=== PATIENT | female | born 1950 | race Caucasian/White ===

== ENCOUNTER 2017-06-03 10:26 | Emergency (ER) | payer OTHER ==
[2017-06-03 10:30] VITALS: BP 137/79; PULSE 80; TEMP 97.8; BMI 28.3
[2017-06-03] MEDS ORDERED: diazePAM 5 MG TABLET PO ONE (11:06)
[2017-06-03] MEDS ORDERED: predniSONE 20 MG TABLET (UD) PO ONE (11:06)
[2017-06-03] MEDS ORDERED: KETOROLAC TROMETHAMINE 60 MG/2 ML VIAL IM ONE (11:06)
--- NOTE | 2017-06-03 11:11 | PDOC ---
History of Present Illness - General Chief Complaint: Back Pain Stated Complaint: BACK PAIN Time Seen by Provider: 06/03/17 10:43 History Source: Patient Exam Limitations: No Limitations - History of Present Illness Initial Comments: 06/03/17 11:06 Occurred: reports: just prior to arrival Severity: reports: mild Pain Location: reports: back, neck Modifying Factors: improves with: None Past History - Travel Traveled outside of the country in the last 30 days: No Close contact w/someone who was outside of country & ill: No - Past Medical History Allergies/Adverse Reactions: Allergies Allergy/AdvReac Type Severity Reaction Status Date / Time No Known Allergies Allergy Verified 06/03/17 10:30 Home Medications: Ambulatory Orders Pantoprazole Sodium [Protonix] 40 mg PO DAILY #7 tablet. 05/06/16 Sucralfate [Carafate -] 1 gm PO QID #28 tablet 05/06/16 Cyclobenzaprine HCl [Flexeril 10 mg] 10 mg PO BID PRN #14 tablet 06/03/17 Prednisone [Deltasone -] 20 mg PO BID #8 tablet 06/03/17 Cancer: No (TAKING MEDS TO PREVENT CANCER?) HTN: Yes Other medical history: CERVICAL PROBLEM - Suicide/Smoking/Psychosocial Hx Smoking History: Never smoked Hx Alcohol Use: No Drug/Substance Use Hx: No Substance Use Type: None Review of Systems - Review of Systems Able to Perform ROS?: Yes Is the patient limited [place] proficient: Yes Constitutional: Yes: Symptoms Reported, See HPI, Malaise HEENTM: No: Symptoms Reported, See HPI Respiratory: Yes: Symptoms reported, See HPI Musculoskeletal: Yes: Symptoms Reported, See HPI, Back Pain, Muscle Pain, Neck Pain Integumentary: Yes: Symptoms Reported Neurological: Yes: Symptoms reported, See HPI, Headache, Weakness All Other Systems: Reviewed and Negative *Physical Exam - Vital Signs Last Vital Signs Temp Pulse Resp BP Pulse Ox 97.8 F 80 20 137/79 98 06/03/17 10:27 06/03/17 10:27 06/03/17 10:27 06/03/17 10:27 06/03/17 10:27 - Physical Exam General Appearance: Yes: Nourished, Appropriately Dressed, Apparent Distress, Moderate Distress HEENT: positive: MAGGIE, Normal ENT Inspection, TMs Normal, Pharynx Normal Neck: positive: Tender, Supple, Other (palpable spasm to the paravertebral spinous muscles extending from inferior sternocleidomastoid on the left side and through trapezius and lumbar paravertebral spinous musculature. Has no true bone tenderness to cervical thoracic or lumbar spine process, but movement is sensationally difficult with recurrent spasm. No numbness or tingling to feet, neurovascular intact) Respiratory/Chest: positive: Lungs Clear, Normal Breath Sounds Extremity: positive: Normal Capillary Refill Integumentary: positive: Normal Color, Dry, Warm Neurologic: positive: sustainability communicator II-XII NML intact, Fully Oriented, Alert, Normal Mood/ Affect, Normal Response, Motor Strength 5/5 Progress Note - Progress Note Progress Note: Severe back spasm, will treat with NSAIDs, cyclobenzaprine, and prednisone. *DC/Admit/Observation/Transfer Diagnosis at time of Disposition: Back muscle spasm - Discharge Dispostion Disposition: HOME Condition at time of disposition: Stable Admit: No - Patient Instructions Printed Discharge Instructions: DI for Back Spasm Additional Instructions: Rest, no heavy lifting or exercise until pain is resolved Hot soaks to neck and low back as often as possible/hot showers or Jacuzzis No massage or therapy until spasm is gone Continue ibuprofen 2-200 mg tablets every 6 hours for the next 3 days then as needed for pain and swelling Cyclobenzaprine 1-10mg every 8 hours as needed for spasm Prednisone 40 mg daily for next 5 days If not significant improvement within 24 hours with medication and rest regime, followup with private physician for change in medications and /or therapy. Call [phone]= Rosaline for updates for medications/ - Post Discharge Activity Forms/Work/School Notes: Back to Work
[2017-06-03] MEDS ORDERED: predniSONE 20 MG TABLET (UD) ONE (11:13)
[2017-06-03] MEDS ORDERED: KETOROLAC TROMETHAMINE 60 MG/2 ML VIAL ONE (11:13)
[2017-06-03] MEDS ORDERED: diazePAM 5 MG TABLET ONE (11:13)
== END 2017-06-03 11:48 | disposition home or self-care (01) ==
LOC: JERFT 10:26
PROC: 3E0233Z Introduction of Anti-inflammatory into Muscle, Percutaneous Approach (ICD-10-PCS; principal; 2017-06-03)
DX: M62.830 Muscle spasm of back (principal)
CPT/HCPCS: 96372; 99281-25

== ENCOUNTER 2022-12-25 18:21 | Emergency (ER) | payer OTHER ==
[2022-12-25 18:31] VITALS: BP 144/59; PULSE 63; RESP 18; TEMP 98.5; BMI 23.7
[2022-12-25] MEDS ORDERED: ACETAMINOPHEN 500 MG TABLET (FP) PO ONE (19:40)
[2022-12-25] MEDS ORDERED: ACETAMINOPHEN 500 MG TABLET (FP) ONE (19:44)
== END 2022-12-25 20:22 | disposition home or self-care (01) ==
LOC: JERFT 18:21
DX: M25.561 Pain in right knee (principal); W01.190A Fall on same level from slipping, tripping and stumbling with subsequent striking against furniture, initial encounter
CPT/HCPCS: 73562-TC-RT-FY; 99283-25

== ENCOUNTER 2023-04-13 12:00 | Emergency (ER) | payer OTHER ==
[2023-04-13 12:07] VITALS: BP 124/80; PULSE 61; RESP 18; TEMP 97.8; BMI 22.6
== END 2023-04-13 12:42 | disposition home or self-care (01) ==
LOC: JERFT 12:00
DX: Z48.02 Encounter for removal of sutures (principal)
CPT/HCPCS: 99281-25

== ENCOUNTER 2023-05-13 21:14 | Emergency (ER) | payer OTHER ==
[2023-05-13 21:43] VITALS: BP 140/70; PULSE 69; RESP 19; TEMP 98.4; BMI 22.8
[2023-05-13] MEDS ORDERED: DIPHTH,PERTUSS(ACELL),TET 0.5 ML DISP.SYRIN IM ONE ×2 (22:21→22:23)
== END 2023-05-13 22:35 | disposition home or self-care (01) ==
LOC: JERFT 21:14 → JER 21:14 → JERFT 22:35
PROC: 3E0234Z Introduction of Serum, Toxoid and Vaccine into Muscle, Percutaneous Approach (ICD-10-PCS; principal; 2023-05-13)
DX: S50.851A Superficial foreign body of right forearm, initial encounter (principal); W45.8XXA Other foreign body or object entering through skin, initial encounter
CPT/HCPCS: 90471; 90715; 99282-25